=== PATIENT | female | born 1935 | race Caucasian/White ===

== ENCOUNTER 2016-04-02 16:19 | Inpatient (IN) | payer MEDICARE, OTHER ==
[~2016-04-02] VITALS: Ht 157.5 cm; Wt 65.5 kg
[~2016-04-02 16:19] MED LIST: CLOP75TA3 PO; LORA10CA PO
[2016-04-02 18:36] VITALS: PULSE 74
[2016-04-02 18:51] VITALS: BP 163/82; PULSE 85; RESP 16; O2SAT 95
[2016-04-02 19:45] VITALS: BP 155/82; PULSE 63; RESP 15; O2SAT 99
[2016-04-02] MEDS ORDERED: Diltiazem 5 mg/mL 5 mL Inj IVPUSH PRN (19:50)
[2016-04-02] MEDS ORDERED: LISI-567 PO (19:57)
[2016-04-02] MEDS ORDERED: ATRV10T PO (19:57)
[2016-04-02] MEDS ORDERED: ASPI-973 PO (19:57)
[2016-04-02] MEDS ORDERED: CHOL200047 PO (19:58)
[2016-04-02] MEDS ORDERED: Ondansetron 2 mg/mL 2 mL Inj IVPUSH PRN (20:00)
--- NOTE | 2016-04-02 20:31 | PCM.HPMED ---
Subjective Date of Service Apr 02, 2016 Primary Provider: Admitting Physician: Mitra Oliva MD Primary Care Physician: Ameya Smalls MD Attending Physician: Mitra Oliva MD Chief Complaint: sob transfer from [place] for RVR not accurate historian 80 y f w/ hx of "irrregular heart beat", presented w. ongoing lightheadness new SOB this am to [facility], noted to be in RVR 150 atrial fibrillation, converted to SR w/ 20 dilt, transferred at Dr. Patel's request. lighheadness started yesterday night, she went to bed and was awakened by chest pressure. reg BM yesterday. resolved SOB / lightheadness after 1L NS and dilt. intemittent leg swelling hx. general loss of appetite since passed last summer w/ weight loss. sinus congestion. [id number] BNP 537 Trop I 0.3 at10am >> 0.4 at2pm Cr 0.8 INR 1.2 Hg 12.3 Other labs unremarkable CXR cardiomegaly EKG 147 afib Review of Systems - none of the following - F/C/sick contact / wt change/ SRINIVASAN / lightheaded / dizziness / sob / cough / cp / acid reflux / n/v/diarrhea / bleeding/bruising / leg swelling / change in voiding / yeast infections / rash 1week ago epigastric pain radiated to back none now. diarrhea/nausea x 3 days, none now. ambulates w/o difficulty FHX cardiac disease social HX never smoker PMHX AR colitis episode HTN DLP OA lower extremity angioplasty s/p plavix x 5 months appendectomy Meds ASA fluticasone/vit d lisinopril statin Allergies Coded Allergies: No Known Allergies (Unverified , 04/02/16) PMH Social History Hx Alcohol Use: No Hx Substance Use: No Smoking Status: Never Smoker Exam Vital Signs Vital Sign - Last Date Time Temp Pulse Resp B/P Pulse Ox O2 Delivery O2 Flow Rate FiO2 04/02/16 19:45 36.7 63 15 155/82 99 Room Air Exam Exam on admission NAD A and O x 3 mood affect WNL NC/AT no icterus no injected eyes EOMI PERRL /no pharyngeal lesions/ no oral lesions / hearing intact Supple neck CTAB equal chest rise / no accessory muscle use / speaks in full sentences / no rrw RRR S1 S2 / no mrg / 2+ radial pulses Soft nt nd + BS no hepatosplenomegaly No edema no cyanosis no ecchymosis of lower extremities No rash / no jaundice ARVIZU CNII-XII grossly intact symmetrical No dysmetria of bilateral upper and lower limbs /no asterixis/ Strength grossly intact of bilateral upper and lower limbs Sensation grossly symmetrical of bilateral upper and lower limbs systolic murmur mild bilateral edema CT angio - small pericardial/pleural effusions, negative PE lipase negative Assessment & Plan Active issues and reason for admission 80 y f, elevated trop, treating as NSTEMI associated w/ RVR/CHF symptoms --heparin gtt, morphine nitro asa statin prn metoprolol/hydralazine --Dr Cordova is aware of patient re: RVR, call in morning to update on elevated trop RVR, afib - unclear if afib is new vs chronic --hx of "irreg"heart beat, only on ASA --resolved at [place], PRN dilt --eventually discuss anticoagulation --not a fall risk, appears to be a poor historian Chronic issues known prior to admission, present on admission AR / lower extremity angioplasty s/p plavix x 5 months / HTN / DLP colitis episode OA --resume home medications, hold home lisinopril Diet NPO DVT prophylaxis on heparin gtt Code full Disposition inpt Assessment and plan were discussed with patient Mitra Oliva MD Apr 02, 2016 20:09
[2016-04-02] MEDS ORDERED: Polyethylene Glycol (PEG) 17 Gm Powder PO PRN (20:35)
[2016-04-02] MEDS ORDERED: Senna-Docusate 8.6-50 mg Tablet PO PRN (20:35)
[2016-04-02] MEDS ORDERED: Alum-Mag Hydrox-Simeth 30 mL Suspension PO PRN (20:35)
--- NOTE | 2016-04-02 21:15 | DRSVH ---
PROCEDURE: CT ANGIO CHEST PULMONARY EMBOLISM ([id number]) INDICATIONS: elevated ddimer, back pain TECHNIQUE: After the administration of intravenous contrast, 2 mm thick sections acquired from the pulmonary api bev to the posterior costophrenic angles. 3-dimensional maximum intensity projection (MIP) coronal a nd sagittal reformats were then acquired through the thorax. For radiation dose reduction, the follo wing was used: automated exposure control, adjustment of mA and/or kV according to patient size. COMPARISON: None. FINDINGS: Image quality: Excellent. Pulmonary arteries: Pulmonary arteries are normal in size, and demonstrate no intraluminal filling d efects to suggest central pulmonary embolism. Lungs and pleura: Minimal bilateral pleural effusions are present. Central and peripheral airways ar e patent. Mediastinum: Heart size is normal, with mild pericardial effusion, measuring 14 mm in transverse dim ension. No mediastinal or hilar adenopathy. Thoracic aorta demonstrates mild ectasia of the ascendi ng segment measuring 36 mm in transverse dimension. No priors are available for comparison. Esophagus is normal in caliber, without hiatal hernia. Bones and chest wall: No suspicious bony lesions. Ribs and thoracic spine appear intact throughout. Thyroid gland is unremarkable. No axillary or supraclavicular adenopathy. Abdomen: Visualized upper abdominal solid organs appear normal in the early arterial phase of enhanc ement. IMPRESSION: 1. No evidence of pulmonary embolism. 2. Minimal bilateral pleural effusions. Dictated by: Jacquelyn Myles M.D. on 04/02/2016 at 21:14 Approved by: Jacquelyn Myles M.D. on 04/02/2016 at 21:14
[2016-04-02 22:50] LABS: Magnesium 1.9 mg/dL (1.6-2.6)
[2016-04-02 22:51] LABS: TROPONIN T 0.359 ug/L (0.0-0.011)
[2016-04-02] MEDS ORDERED: Heparin 25K Unit/500mL 0.45 NS 25,000 UNIT in IV Premix 1 EACH IV SCH (23:05)
[2016-04-02] MEDS ORDERED: Heparin 5,000 Unit/mL Inj IVPUSH ONE (23:05)
[2016-04-02] MEDS ORDERED: Heparin 5,000 Unit/mL Inj IVPUSH PRN (23:05)
[2016-04-02 23:12] VITALS: BP 131/74; PULSE 75; RESP 18; O2SAT 97
[2016-04-03] VITALS (32 sets, daily range): BP systolic 69–130; BP diastolic 42–85; PULSE 63–155; RESP 11–22; O2SAT 94–100
[2016-04-03 00:54] LABS: APPEARANCE,URINE CLEAR (CLEAR,HAZY); COLOR,URINE STRAW (YELLOW); OCCULT BLOOD,URINE TRACE (NEGATIVE); PH,URINE 5.5 (5.0-8.0); UROBILINOGEN,URINE NORMAL (NORMAL)
[2016-04-03] MEDS ORDERED: Sodium Chloride NAS 45 mL Spray NASAL PRN (02:00)
--- NOTE | 2016-04-03 02:34 | NUR ---
Admit: Pt admitted as transfer from [facility]. Med rec completed over the phone via daughter who had pt pill bottles. Health history obtained from pt interview. Pt denies any chest pain or discomfort. Tele SR with PACs, Sp02 90s on RA. Critical Troponin reported to Dr. Oliva- Pt placed on cardiac heparin gtt protocol per MD orders. Pt has been NPO since after midnight. Pt sleeping comfortably. Care ongoing
[2016-04-03 05:18] LABS: Mean Corpuscular Hemoglobin 28.1 pg (27.0-35.0); Mean Corpuscular Volume 88.5 fL (81-100)
[2016-04-03 05:38] LABS: INR 1.12 ratio
[2016-04-03 06:08] LABS: Magnesium 1.9 mg/dL (1.6-2.6)
[2016-04-03 06:12] LABS: TROPONIN T 0.323 ug/L (0.0-0.011)
--- NOTE | 2016-04-03 09:04 | NUR ---
Afib Per lawn care technician patient converted back to Afib at approximately 0659. EKG done. MD notified. Pt HR low 60s to 160s.
[2016-04-03] MEDS ORDERED: 0.9% Sodium Chloride 1,000 ML IV ONE (10:37)
[2016-04-03] MEDS ORDERED: Heparin 1,000 Units/500 mL NS Premix IV ONE (10:44)
[2016-04-03] MEDS ORDERED: Heparin 5,000 Units/500 mL NS Premix IV ONE (10:44)
[2016-04-03] MEDS ORDERED: Heparin 1,000 Unit/mL 10 mL Inj ONE (10:45)
[2016-04-03] MEDS ORDERED: Nitroglycerin 50,000 mcg/250 mL D5W Premix IV ONE (10:53)
[2016-04-03] MEDS: Pantoprazole 4 mg/mL 10 mL Inj IVPUSH SCH (11:11)
--- NOTE | 2016-04-03 11:40 | NUR ---
Off floor to Poultry Service Technician Pt off floor to Poultry Service Technician at 1140, accompanied by daughter.
[2016-04-03] MEDS ORDERED: fentaNYL-PF 50 mCg/mL 2 mL Inj ONE (11:56)
[2016-04-03] MEDS ORDERED: Phenylephrine/NS-PF 100 mCg/mL 5 mL Syringe IVPUSH ONE (12:09)
[2016-04-03] MEDS ORDERED: 0.9% Sodium Chloride 0 ML ONE (12:16)
[2016-04-03] MEDS ORDERED: Adenosine Inj 0 ML IV ONE (12:16)
[2016-04-03] MEDS ORDERED: 0.9% Sodium Chloride 250 ML ONE (12:17)
[2016-04-03] MEDS ORDERED: Adenosine 3 mg/mL 2 mL Inj ONE (12:17)
[2016-04-03] MEDS ORDERED: Atropine 1 mg/10 mL (Code) Syringe ONE (12:19)
--- NOTE | 2016-04-03 13:03 | DI95 ---
[address] [address] INTERVENTIONAL CARDIAC CATHETERIZATION PATIENT: SALVADOR SUAREZ : 1935 MR#: [id number] ADMIT: 04/02/2016 JOB ID: [id number] DATE: 04/03/2016 PROCEDURE: 1. Selective right and left coronary angiography. 2. Left heart catheterization. 3. FFR of the left main. INDICATION: Large ST elevation MO. PROCEDURAL DETAILS: The procedure was done via right femoral approach using a 6-Angolan system. Further details are enumerated in the procedure log to which the reader and the coders are referred. ANGIOGRAPHIC FINDINGS: 1. Habq-lo-ywqofkjs calcification of the coronary tree is noted on fluoroscopy. 2. Left main moderate 30%-40% angiographic disease. However, there was significant ventricularization and damping of the pressure. This did not respond with intracoronary nitroglycerin. In view of this, an FFR was done. Details about the FFR are reported below. 3. LAD: No significant disease. It is a moderate caliber vessel. 4. Circumflex: In its distal circumflex distally has a tubular 70% stenosis. 5. Right coronary artery is totally occluded. This is probably an ostial occlusion. Faint filling of the very proximal RCA seen by a subselective injection. The rest of the artery is seen to fill via [id number] collaterals. This is technically a bypassable vessel. 6. Left heart catheterization revealed LVEDP of 15. There was no gradient upon pullback. 7. We then did an FFR of the left main. The FFR in the left main with intracoronary Adenosine was 0.87, thereby indicating that it was not physiologically significant. ASSESSMENT AND PLAN: This lady has two-vessel coronary artery disease and a borderline left main lesion. The circumflex is a small vessel barely 2 mm. This can be managed medically. The RCA is a flush occlusion and given her advanced age and limited functional ability, I think this is best managed medically too. Lastly, with regard to her left main, it is not critical at this point. I would recommend close cardiology followup and aggressive risk factor modification. I will be discussing all this with the patient postprocedure.
--- NOTE | 2016-04-03 13:20 | NUR ---
Dr Jorgensen called and informed that patient has had for woods laborer and DAMIAN (during hypotensive episode) total 1 litre fluid. I don't know details of patient's cardiac function so wanted to confirm that I may continue normal saline @ 100cc/hr. He would like NS to continue per order. Throughout patient's hypotensive episode during manual compression after arterial line pull, patient remained alert, oriented, warm and dry.
--- NOTE | 2016-04-03 13:24 | PCM.PNMED ---
Subjective Date of Service Apr 03, 2016 Subjective The patient is doing well. She does have some palpitations. She denies any chest pain today. No chest pressure. She has had some vague history of pressure over the course of the night. She has had mild troponin elevations as well. She denies any cough or dyspnea. No leg edema. No nausea or vomiting. No dyspepsia. Exam Vital Signs Vital Sign - Last Date Time Temp Pulse Resp B/P Pulse Ox O2 Delivery O2 Flow Rate FiO2 04/03/16 08:30 36.5 153 22 97/65 99 Room Air Intake and Output 04/02/16 04/02/16 04/03/16 Cumulative From/Thru 15:00 23:00 07:00 04/02/16 18:52 - 04/03/16 06:07 Intake Total 396 ml 396 ml Output Total 650 ml 650 ml Balance -254 ml -254 ml Intake Oral 300 ml 300 ml IV Total 96 ml 96 ml Output Urine Total 650 ml 650 ml # Bowel Movements 0 0 Exam Third oriented 3, no distress. Neck is supple. Lungs are clear with normal effort Heart is irregular and tachycardic without murmur gallop or rub Abdomen soft nondistended Extremities are free of edema and good peripheral pulses. IVs and Medications Medications Reviewed: Medications were reviewed in detail Lab and Diagnostics Result Diagram: 04/03/16 0500 04/03/16 0500 Assessment & Plan Active issues and reason for admission 80 y f, elevated trop, 1. NSTEMI associated w/ RVR/CHF symptoms --heparin gtt, morphine nitro asa statin prn metoprolol/hydralazine -- We will request formal cardiology consultation as we continue to work on rate control. 2. Atrovent fibrillation with rapid ventricular response. - unclear if afib is new vs chronic -- We will continue heparin drip at this point and rate control. We will add a low-dose beta eileen orally and attempt to wean her off her diltiazem drip. Chronic issues known prior to admission, present on admission Left leg PAD, lower extremity angioplasty s/p plavix x 5 months / HTN / DLP colitis episode OA --resume home medications, hold home lisinopril Diet NPO, until after cardiology consultation. DVT prophylaxis on heparin gtt Code full Disposition inpt Assessment and plan were discussed with patient Pain Evaluation: Adequate Pain Control Resuscitation Status: CPR: Attempt Resuscitation Time spent 30 minutes Ramakrishna Parks MD Apr 03, 2016 13:24
--- NOTE | 2016-04-03 13:54 | NUR ---
Social Work: Attempted Assessment D: Per EMR review, pt is an 80 year old female admitted for CHF, AFIB. Pt is Medicare with [employer]. PCP is Ameya Luo MD. NOK is Audrey Luo, Dtr, . Readmit score not entered at this time. Advanced directives on file. SPRAY GUN STRIPER attempted to meet with pt at bedside to complete initial assessment. Pt is currently off the floor for cardiac cath. SPRAY GUN STRIPER attempted to speak with pt's daughter via telephone. No answer. Left message requesting return phone call. A: Pt who was previously living in [facility] at baseline. P: Evolving; SPRAY GUN STRIPER to complete assessment with pt and/or family ESTHER Pichardo
--- NOTE | 2016-04-03 14:26 | CONS ---
[address] [address] CONSULTATION REPORT PATIENT: SALVADOR SUAREZ : 1935 MR#: [id number] ADMIT: 04/02/2016 JOB ID: [id number] DATE OF SERVICE: 04/03/2016 CHIEF COMPLAINT: New onset atrial fibrillation. HISTORY OF PRESENT ILLNESS: I was contacted by the [facility] because of this lady having rapid atrial fibrillation and positive troponin along with ST-T changes. The patient was admitted to the hospitalist at [facility]. I was asked to see her in consultation. The patient was lightheaded yesterday. She went to bed and had some chest discomfort. She was treated with IV diltiazem. At the time of interview this morning, she was pain free and was unaware of any palpitations at that point. 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 He had advanced dementia and she was taking care of him. Since then, she has not really thrived very well. I have also spoken to her daughter. She states that her mother is not very active. The patient states that she cannot walk a block. About a year ago she had intervention done on her legs with Dr. Huitron. I do not have access to that report. It appears that some kind of a peripheral intervention was done on her legs. She states her legs are the limiting factor; any time she tries to exert herself she gets claudication type symptoms. Her legs get fatigued and tighten up on her. Intervention by Dr. Huitron made only a modest improvement in her symptoms. At home she has not had any pressure or tightness. She denied any orthopnea or PND. REVIEW OF SYSTEMS: A comprehensive review of systems was done and is essentially as per HPI. Pertinent negatives are no strokes, no TIAs, no upcoming surgeries. FAMILY HISTORY: Negative for premature coronary artery disease. PERSONAL HISTORY: Nonsmoker, nondrinker. PAST MEDICAL HISTORY: Hypertension, osteoarthritis, peripheral vascular disease, hypertension. MEDICATIONS AT HOME: Lisinopril, statin, and aspirin. ALLERGIES: None. PHYSICAL EXAMINATION: Elderly lady who looks her age. Pulse 120, irregular. Blood pressure 100/70. Neck: Supple. No JVD. Chest: Clear. Heart: Heart sounds S1 and S2 irregularly irregular. No gallops. No murmurs. Abdomen: Soft. Extremities: Negative for CCE. Femoral pulses are 1+. Distal pulses were not palpable. SENIOR MARKET INTELLIGENCE CONSULTANT: Alert and oriented. ASSESSMENT AND PLAN: This lady presents with rapid atrial fibrillation. She also has elevated troponin which may or may not be due to demand ischemia. Given her history of peripheral vascular disease, coronary artery disease is strongly suspected. She also had significant ST-segment depression with rapid heart rates. I believe she would require a coronary angiogram. The risks, benefits, and alternatives were discussed with the patient. The patient agreed to proceed ahead with an angiogram. The details of the angiogram are reported elsewhere. Briefly, she has a chronically occluded RCA and disease in a small caliber circumflex. This is distal disease. The left man main has about 40% angiographic stenosis and the FFR in the left main was 0.87. At this point I would like to slow her heart rate down. Start her on warfarin along with Plavix. Her aspirin can be held for now. I would like her to take Plavix for at least six months to a year. She will have arterial Dopplers performed on her legs. An echo has been ordered. I am awaiting the results of her echocardiogram as well.
--- NOTE | 2016-04-03 14:45 | NUR ---
T.C to Dr. Jorgensen regarding patient's atrial fibrillation rate 140's to 152 and sbp in the mid 90's range. Order to give a small dose of in metoprolol 2.5 mg IV and then P.O metoprolol depending on response.
[2016-04-03] MEDS ORDERED: MeTOProlol 1 mg/mL 5 mL Inj ONE (14:50)
--- NOTE | 2016-04-03 16:30 | NUR ---
Dr Jorgensen updated on patient's response to IV metiprolol.It has been approx. 1hour 25 minutes since given and she had a blood pressure response in the 60's to 80's systolic for which she received NS 250cc bolus. Patient has no complaints, right groin stable without pain, oozing or hematoma. New orders received to give digoxin IV and metoprolol 25 mg P.O with parameters for giving Metoprolol 50 mg P.O BID (written by Dr Jorgensen) if SBP is greater than 110.
[2016-04-03] MEDS ORDERED: Digoxin 0.25 mg/mL 2 mL Inj IV ONE ×2 (16:35→16:45)
--- NOTE | 2016-04-03 17:20 | NUR ---
Report called to Loretta [facility]. Pt's systolic Bp now 130, iv digoxin and p.o metoprolol given.Pt transferred back to room 2027 in stable condition, HR still in 130's to 140 range.Handoff at bedside, pt may be off bedrest since she is 4 hrs post removal of arterial sheath.
--- NOTE | 2016-04-03 17:32 | NUR ---
DAMIAN to [facility] Patient arrived from [facility] at approximately 1715. Report taken from DAMIAN [place]. Pt BP 124/79, P 146. Right groin palped no sign of hematoma or bleeding. Ordered patients dinner. Patient off bedrest at 1715. Patient resting. Care continues.
[2016-04-03] MEDS ORDERED: 0.9% Sodium Chloride 250 ML BOLUS IV PRN (19:30)
[2016-04-03] MEDS ORDERED: Ondansetron 2 mg/mL 2 mL Inj IVPUSH PRN (19:30)
[2016-04-03] MEDS ORDERED: 0.9% Sodium Chloride 400 ML (4 HRS) IV ONE (19:30)
[2016-04-03] MEDS ORDERED: Atropine 1 mg/10 mL (Code) Syringe IVPUSH PRN (19:30)
[2016-04-03] MEDS ORDERED: Sodium Chloride LOK Flush 10 mL Syringe IVFLUSH PRN (19:30)
[2016-04-03] MEDS ORDERED: HYDROcodone-APAP 5-325 mg Tablet PO PRN (19:30)
[2016-04-03] MEDS: Sodium Chloride LOK Flush 10 mL Syringe IVFLUSH SCH ×2 (20:14→22:15)
--- NOTE | 2016-04-03 23:01 | PCM.CONPHA ---
Subjective Date of Service: Apr 03, 2016 sob transfer from [place] for RVR not accurate historian 80 y f w/ hx of "irrregular heart beat", presented w. ongoing lightheadness new SOB this am to [facility], noted to be in RVR 150 atrial fibrillation, converted to SR w/ 20 dilt, transferred at Dr. Patel's request. lighheadness started yesterday night, she went to bed and was awakened by chest pressure. reg BM yesterday. resolved SOB / lightheadness after 1L NS and dilt. intemittent leg swelling hx. general loss of appetite since passed last summer w/ weight loss. sinus congestion. [id number] BNP 537 Trop I 0.3 at10am >> 0.4 at2pm Cr 0.8 INR 1.2 Hg 12.3 Other labs unremarkable CXR cardiomegaly EKG 147 afib Review of Systems - none of the following - F/C/sick contact / wt change/ SRINIVASAN / lightheaded / dizziness / sob / cough / cp / acid reflux / n/v/diarrhea / bleeding/bruising / leg swelling / change in voiding / yeast infections / rash 1week ago epigastric pain radiated to back none now. diarrhea/nausea x 3 days, none now. ambulates w/o difficulty FHX cardiac disease social HX never smoker PMHX ID colitis episode HTN DLP OA lower extremity angioplasty s/p plavix x 5 months appendectomy Meds ASA fluticasone/vit d lisinopril statin Reason for Pharmacy Consult: Anticoagulation Management Objective Vital Signs Date Time Temp Pulse Resp B/P Pulse Ox O2 Delivery O2 Flow Rate FiO2 04/03/16 20:01 36.8 100 16 116/76 98 Room Air 04/03/16 17:35 36.5 146 18 124/79 99 Room Air 04/03/16 17:01 138 130/84 04/03/16 16:50 144 04/03/16 16:45 138 92/57 04/03/16 16:25 132 103/72 04/03/16 16:22 140 103/72 04/03/16 16:19 139 19 74/59 04/03/16 16:05 141 15 99/76 04/03/16 16:04 139 17 85/63 04/03/16 15:56 139 87/57 04/03/16 15:52 137 22 91/67 Room Air 04/03/16 15:45 137 13 85/69 04/03/16 15:42 136 14 79/64 04/03/16 15:28 137 15 95/73 Room Air 04/03/16 15:26 133 11 69/55 Room Air 04/03/16 15:15 133 14 93/55 04/03/16 14:57 147 13 103/68 Room Air 04/03/16 14:30 148 16 95/74 94 Room Air 04/03/16 14:15 155 16 107/77 94 Room Air 04/03/16 13:57 146 14 104/85 94 Room Air 04/03/16 13:45 146 14 72/57 94 Room Air 04/03/16 13:30 142 14 94/69 96 Nasal Cannula 3.00 04/03/16 13:15 144 14 100/62 96 Nasal Cannula 3.00 04/03/16 13:10 141 14 101/61 96 Nasal Cannula 4.00 04/03/16 13:05 146 14 94/79 96 Nasal Cannula 4.00 04/03/16 13:00 140 14 75/42 96 Nasal Cannula 4.00 04/03/16 12:55 144 14 78/52 96 Nasal Cannula 4.00 04/03/16 12:53 145 14 100/61 96 Nasal Cannula 4.00 04/03/16 08:30 36.5 153 22 97/65 99 Room Air 04/03/16 05:31 74 04/03/16 03:16 36.7 73 18 107/66 98 Room Air 04/02/16 23:12 36.5 75 18 131/74 97 Room Air Weight (Kilograms): 63.000 Height (Feet): 5 Height (Inches): 2.00 Test 04/02/16 22:05 04/02/16 23:51 04/03/16 05:00 04/03/16 18:15 Lipase 12U/L (13-60) Urine Color Straw (YELLOW) Urine Appearance Clear (CLEAR,HAZY) Urine pH 5.5 (5.0-8.0) Urine Specific [place] 1.005 (1.003-1.035) Urine Protein Negativemg/dL (NEG,TRACE) Urine Glucose (UA) Negativemg/dL (NEGATIVE) Urine Ketones 15mg/dL (NEGATIVE) Urine Occult Blood Trace (NEGATIVE) Urine Nitrite Negative (NEGATIVE) Urine Bilirubin Negative (NEGATIVE) Urine Urobilinogen Normalmg/dL (NORMAL) Urine Leukocyte Esterase Negative (NEGATIVE) Urine RBC 0-2/hpf (0-2) Urine WBC 0-5/hpf (0-5) Urine Epithelial Cells Moderate/hpf (NONE-MOD) Urine Crystals None seen (NONE SEEN) Urine Bacteria None/hpf (NONE-FEW) Urine Hyaline Casts None/lpf (NONE) Urine Granular Casts None seen (NONE SEEN) Urine Waxy Casts None seen (NONE SEEN) Urine Red Blood Cell Casts None seen (NONE SEEN) Urine White Blood Cell Casts None seen (NONE SEEN) Urine Mucus None seen (None Seen) Urine Trichomonas None seen (NONE SEEN) Urine Yeast None (NONE SEEN) Urine Culture Reflexed Not indicated White Blood Count 5.2th/mm3 (3.8-10.1) Red Blood Count 3.91mil/mm3 (3.90-5.20) Hemoglobin 11.0g/dL (12.0-15.6) Hematocrit 34.6% (35.0-46.0) Mean Corpuscular Volume 88.5fL (81-100) Mean Corpuscular Hemoglobin 28.1pg (27.0-35.0) Mean Corpuscular Hemoglobin Concent 31.8% (32.0-37.0) Red Cell Distribution Width 13.4% (12.3-15.4) Platelet Count 259bil/L (150-400) Prothrombin Time 12.0sec (8.1-12.5) Prothromb Time International Ratio 1.12ratio Sodium Level 140mEq/L (134-144) Potassium Level 3.9mEq/L (3.5-5.2) Chloride Level 105mEq/L (97-108) Carbon Dioxide Level 20mmol/L (18-29) Blood Urea Nitrogen 7mg/dL (8-27) Creatinine 0.60mg/dL (0.57-1.00) Estimat Glomerular Filtration Rate 137mL/min (>59) Glucose Level 83mg/dL (60-99) Calcium Level 8.2mg/dL (8.5-10.1) Phosphorus Level 3.0mg/dL (2.5-4.9) Magnesium Level 1.9mg/dL (1.6-2.6) Troponin T 0.323ug/L (0.0-0.011) Thyroid Stimulating Hormone (TSH) 1.680uIU/mL (0.450-4.500) Free Thyroxine 1.32ng/dL (0.82-1.77) Activated Partial Thromboplast Time 29.4sec (22.8-33.0) Assessment/Plan Assessment/Plan Gold Miner ordered Coumadin 4mg daily INR: 1.12; Goal 2 - 3 Indication: A-Fib, uncertain if new onset or chronic 4mg given; Daily INR ordered Edu Reynolds PharmD Apr 03, 2016 23:01
[2016-04-04] VITALS (8 sets, daily range): BP systolic 110–174; BP diastolic 59–89; PULSE 55–106; RESP 16–20; O2SAT 98–100
[2016-04-04 03:56] LABS: Mean Corpuscular Hemoglobin 28.5 pg (27.0-35.0); Mean Corpuscular Volume 89.1 fL (81-100)
[2016-04-04 04:18] LABS: INR 1.26 ratio
--- NOTE | 2016-04-04 04:51 | NUR ---
Telemetry Pt afib 100s-110s at beginning of shift; HS medications administered with 400ml bolus of NS. At approx. 2040, pt spontaneously converted to sinus arrhythmia in 50s-60s. EKG obtained for confirmation. Pt denies feeling symptomatic. VSS.
[2016-04-04] MEDS: Pantoprazole 4 mg/mL 10 mL Inj IVPUSH SCH (09:54)
[2016-04-04] MEDS: Sodium Chloride LOK Flush 10 mL Syringe IVFLUSH SCH ×2 (09:55→18:29)
--- NOTE | 2016-04-04 12:29 | DRSVH ---
[facility] [address] [place] [address] Echocardiogram Report Name: SALVADOR SUAREZ MStudy Date: 04/04/2016 Height: 62 in Hospital Exam Location: [facility] Weight: 144 lb Gender: Other BSA: 1.7 m2 : 1935 Age: 80 yrs BP: 129/69 mmHg Reason For Study: AFIB Ordering Physician: HOSPITALIST MARELYerformed By: Navdeep Larson Referring Physician: Duong COTTON Interpretation Summary The left ventricle is normal in size. The ejection fraction is estimated to be 65-70%. There is mild prolapse of the posterior mitral valve leaflet. There is mild mitral regurgitation. The right ventricular systolic pressure is estimated at 29 mmHg assuming a right atrial pressure of 3 mm Hg. There are no echocardiographic indications of cardiac tamponade. There is a small right-sided pleural effusion. There is a moderate left-sided pleural effusion. Procedure: A two-dimensional transthoracic echocardiogram with color flow and Doppler was performed. The study quality was technically adequate. There is no prior echocardiogram noted for this patient. The patient was in normal sinus rhythm during the exam. Left Ventricle: The left ventricle is normal in size. There is normal left ventricular wall thickness. The ejection fraction is estimated to be 65-70%. There are no focal wall motion abnormalities. Right Ventricle: The right ventricle is normal in size and function. Atria: Both atria are normal in size. The interatrial septum is intact with no evidence for an atrial septal defect. Mitral Valve: There is mild mitral annular calcification. The mitral valve chordae are thickened and/or calcified. There is mild prolapse of the posterior mitral valve leaflet. There is mild mitral regurgitation. Aortic Valve: The aortic valve is trileaflet. The aortic valve opens well. There is trace aortic regurgitation. Tricuspid Valve: The tricuspid valve is normal in structure and function. There is mild tricuspid regurgitation. The right ventricular systolic pressure is estimated at 29 mmHg assuming a right atrial pressure of 3 mm Hg. Pulmonic Valve: The pulmonic valve is normal in structure and function. There is trace pulmonic regurgitation. Great Vessels: The aortic root is normal size. The ascending aorta is mildly enlarged. The pulmonary artery is normal size. The IVC is of normal diameter and collapses greater than 50% with a sniff. This suggests a low right atrial pressure of 3 mm Hg. Pericardium/ Pleura There is a moderate pericardial effusion noted. There are no echocardiographic indications of cardiac tamponade. There is a small right-sided pleural effusion. There is a moderate left-sided pleural effusion. MMode/2D Measurements & Calculations LVIDd: 4.1 cm LA dimension: 3.2 cm RA long axis Ao root diam LVIDs: 2.1 cm FS: 47.9 % LA A2 area: 20.0 cm RA area Aortic Jxn: 2.0 cm EPSS: 0.17 cm LA A4 area: 18.2 cm asc Aorta Diam IVSd: 0.96 cm LA length (vol) : 15.8 cm LVPWd: 0.90 cm RA vol Ao Arch Diam (Prox LA vol: 52.9 ml : 47.6 ml Trans): 2.8 cm LA vol index RA : 28.6 mm2 IVC diam: 2.0 cm LV jennings. diameter/BSA LV sys. diameter/BSA RVD1 (basal) RVD2 (mid): 3.2 cm (cm/m^2): 2.4 (cm/m^2): 1.3 Doppler Measurements & Calculations Ao V2 max MV E max placido MV E/A: 1.3 TR max placido: 252.7 cm/sec : 117.8 cm/sec : 90.1 cm/sec Med Peak E' Placido TR max P.5 mmHg Ao max PG MV A max placido PA V2 max: 56.5 cm/sec : 5.6 mmHg : 68.6 cm/sec E/E' med: 16.5 PA mean P.57 mmHg Ao mean PG Pulm A Revs Dur PA Accel Time: 0.05 sec : 2.6 mmHg MV A dur: 0.13 sec MV dec time Ao V2 mean PA V2 mean Pulm A Revs Dur - MV A : 0.19 sec : 75.2 cm/sec : 35.3 cm/sec Dur: -0.02 msec Ao V2 VTI PA pr(Accel) : 25.6 cm : 56.5 mmHg Electronically signed by: Kwame Jorgensen on Reading Physician:04/04/2016 12:28 PM
--- NOTE | 2016-04-04 13:30 | NUR ---
Mobility Encourage patient to walk in room or sit in chair to eat. Patient states she was up in the morning. Patient resting comfortably. Daughter to arrive around 2p to visit. Care continues.
--- NOTE | 2016-04-04 13:33 | NUR ---
Off floor to CT Patient off floor to CT at approximately 1320. Addendum: 04/04/16 at 1334 by GENA WASHINGTON RN Wrong patient
[2016-04-04 14:14] LABS: BASOPHILS % (AUTO) 0.2 % (0-3); MONOCYTES % (AUTO) 12.1 % (4-12); Mean Corpuscular Hemoglobin 28.2 pg (27.0-35.0); Mean Corpuscular Volume 88.3 fL (81-100); NEUTROPHILS % (AUTO) 69.8 % (40-74); Platelet Count 319 bil/L (150-400)
--- NOTE | 2016-04-04 14:34 | NUR ---
Social Work: Initial Assessment D: NANNY CAREGIVER spoke with pt's daughter to complete assessment. Sw role explained. See initial assessment. Pt lives in [place] with her daughter. Pt is I at baseline- pt uses a walker, does not drive, has never had HH or skilled rehab/nursing. Pt has completed advanced directives per daughter. NANNY CAREGIVER requested copy- daughter will provide. She states that she does not have any concerns for pt discharging home as long as she has not had a sharp decrease in functioning. Per care trends, pt continues to be I during admission. NANNY CAREGIVER reviewed possibility for home health. Family will think about this. HH choice list provided to pt and verbally reviewed with pt's daughter. They have no preference for [facility] if pt requires this at discharge. A: Pt who is I at baseline. P: Anticipate pt to discharge home via POV once medically stable; NANNY CAREGIVER to r/o possible home health with tomorrow. ESTHER Pichardo Addendum: 04/04/16 at 1444 by SAMEER KAY Amended: Links added.
[2016-04-04 15:06] LABS: Bilirubin, Direct < 0.2 mg/dL (0.0-0.3)
--- NOTE | 2016-04-04 15:17 | PCM.CONPHA ---
Subjective Date of Service: Apr 04, 2016 atrial fibrillation Reason for Pharmacy Consult: Anticoagulation Management Objective Vital Signs Date Time Temp Pulse Resp B/P Pulse Ox O2 Delivery O2 Flow Rate FiO2 04/04/16 12:20 36.4 63 20 110/59 100 Room Air 04/04/16 09:30 36.6 65 18 149/65 98 04/04/16 06:01 55 04/04/16 03:34 36.6 106 16 129/69 98 Room Air 04/03/16 22:58 36.5 63 16 128/67 100 Room Air 04/03/16 20:01 36.8 100 16 116/76 98 Room Air 04/03/16 17:35 36.5 146 18 124/79 99 Room Air 04/03/16 17:01 138 130/84 04/03/16 16:50 144 04/03/16 16:45 138 92/57 04/03/16 16:25 132 103/72 04/03/16 16:22 140 103/72 04/03/16 16:19 139 19 74/59 04/03/16 16:05 141 15 99/76 04/03/16 16:04 139 17 85/63 04/03/16 15:56 139 87/57 04/03/16 15:52 137 22 91/67 Room Air 04/03/16 15:45 137 13 85/69 04/03/16 15:42 136 14 79/64 04/03/16 15:28 137 15 95/73 Room Air 04/03/16 15:26 133 11 69/55 Room Air Intake and Output 04/02/16 04/03/16 04/04/16 00:00 00:00 00:00 Intake Total 2596 ml Output Total 950 ml Balance 1646 ml Weight (Kilograms): 65.500 Height (Feet): 5 Height (Inches): 2.00 Test 04/02/16 22:05 04/02/16 23:51 04/03/16 05:00 04/03/16 18:15 Lipase 12U/L (13-60) Urine Color Straw (YELLOW) Urine Appearance Clear (CLEAR,HAZY) Urine pH 5.5 (5.0-8.0) Urine Specific [place] 1.005 (1.003-1.035) Urine Protein Negativemg/dL (NEG,TRACE) Urine Glucose (UA) Negativemg/dL (NEGATIVE) Urine Ketones 15mg/dL (NEGATIVE) Urine Occult Blood Trace (NEGATIVE) Urine Nitrite Negative (NEGATIVE) Urine Bilirubin Negative (NEGATIVE) Urine Urobilinogen Normalmg/dL (NORMAL) Urine Leukocyte Esterase Negative (NEGATIVE) Urine RBC 0-2/hpf (0-2) Urine WBC 0-5/hpf (0-5) Urine Epithelial Cells Moderate/hpf (NONE-MOD) Urine Crystals None seen (NONE SEEN) Urine Bacteria None/hpf (NONE-FEW) Urine Hyaline Casts None/lpf (NONE) Urine Granular Casts None seen (NONE SEEN) Urine Waxy Casts None seen (NONE SEEN) Urine Red Blood Cell Casts None seen (NONE SEEN) Urine White Blood Cell Casts None seen (NONE SEEN) Urine Mucus None seen (None Seen) Urine Trichomonas None seen (NONE SEEN) Urine Yeast None (NONE SEEN) Urine Culture Reflexed Not indicated Magnesium Level 1.9mg/dL (1.6-2.6) Troponin T 0.323ug/L (0.0-0.011) Free Thyroxine 1.32ng/dL (0.82-1.77) Activated Partial Thromboplast Time 29.4sec (22.8-33.0) Test 04/04/16 03:45 04/04/16 14:05 Prothrombin Time 13.5sec (8.1-12.5) Prothromb Time International Ratio 1.26ratio Thyroid Stimulating Hormone (TSH) 3.070uIU/mL (0.450-4.500) White Blood Count 6.5th/mm3 (3.8-10.1) Red Blood Count 4.29mil/mm3 (3.90-5.20) Hemoglobin 12.1g/dL (12.0-15.6) Hematocrit 37.9% (35.0-46.0) Mean Corpuscular Volume 88.3fL (81-100) Mean Corpuscular Hemoglobin 28.2pg (27.0-35.0) Mean Corpuscular Hemoglobin Concent 31.9% (32.0-37.0) Red Cell Distribution Width 13.8% (12.3-15.4) Platelet Count 319bil/L (150-400) Neutrophils (%) (Auto) 69.8% (40-74) Lymphocytes (%) (Auto) 15.4% (14-46) Monocytes (%) (Auto) 12.1% (4-12) Eosinophils (%) (Auto) 2.0% (0-5) Basophils (%) (Auto) 0.2% (0-3) Sodium Level 141mEq/L (134-144) Potassium Level 4.2mEq/L (3.5-5.2) Chloride Level 105mEq/L (97-108) Carbon Dioxide Level 18mmol/L (18-29) Blood Urea Nitrogen 12mg/dL (8-27) Creatinine 0.66mg/dL (0.57-1.00) Estimat Glomerular Filtration Rate 123mL/min (>59) Glucose Level 104mg/dL (60-99) Calcium Level 8.8mg/dL (8.5-10.1) Phosphorus Level 3.0mg/dL (2.5-4.9) Total Bilirubin 0.3mg/dL (0.0-1.2) Direct Bilirubin < 0.2mg/dL (0.0-0.3) Aspartate Amino Transf (AST/SGOT) 18U/L (0-50) Alanine Aminotransferase (ALT/SGPT) 9U/L (0-32) Alkaline Phosphatase 93U/L (25-165) Pro-B-Type Natriuretic Peptide 4753pg/mL (0-738) Total Protein 5.9g/dL (6.4-8.4) Albumin 3.4g/dL (3.4-5.0) Assessment/Plan Assessment/Plan Assessment: * Patient is needing warfarin management for atrial fibrillation. * Patient was given warfarin 4 mg on 04/03/16 after the baseline INR was 1.12. * Patient's INR goal range: 2-3 * Patient's INR on 04/04/16: 1.26 * Patient's INR improved after the first dose. Plan: * Will give another warfarin 4 mg dose on 04/04/16 and will reevaluate with the PT/INR on 04/05/16. * Will continue to follow. Jesus Rojo Apr 04, 2016 15:17
--- NOTE | 2016-04-04 15:30 | NUR ---
Thoracentesis Patient tolerated procedure. VSS. Care continues
--- NOTE | 2016-04-04 16:27 | PCM.DIMED ---
Discharge Instructions Date of Service Apr 04, 2016 Dates of Hospitalization Apr 02, 2016 at 18:27 Discharge Diagnosis Discharge Diagnosis 1. Atrial fibrillation with rapid response. Resolved 2. CAD with occluded RCA 3. PAD 4. Bilateral pleural effusions, unclear etiology 5. Pericardial effusion Diet Heart Healthy Activity Limited until seen by PCP Call your provider Fever or Chills, Shortness of breath, Chest pain Patient Instructions Dr Tamayo early next week with protime (for coumadin) Dr Parks will call over weekend with fluid test results. Ramakrishna Parks MD Apr 04, 2016 16:27
[2016-04-04] MEDS ORDERED: WARF3TAB7 PO (16:29)
[2016-04-04] MEDS ORDERED: METO50TA3 PO (16:29)
[2016-04-04] MEDS ORDERED: CLOP75TA28 PO (16:29)
--- NOTE | 2016-04-04 17:06 | PROG NOTE ---
[address] [address] PROGRESS NOTE PATIENT: SALVADOR SUAREZ : 1935 MR#: [id number] ADMIT: 04/02/2016 JOB ID: [id number] DATE: 04/04/2016 SUBJECTIVE: Feels much better. Heart rate has slowed down. She is comfortable and would like to go home. Her echo was reviewed today. She has got pleural and pericardial effusions. I contacted Dr. Parks and spoke with Dr. Rosado. He is planning to do a thoracentesis. The patient's care and treatment plan was discussed with the patient, as well as her daughter. OBJECTIVE: Pulse 66, blood pressure 165/73. Neck: Supple. No JVD. Chest: Clear. Heart: Sounds S1, S2 regular. No gallops. Abdomen: Soft. Extremities: Negative for CCE. Diminished distal pulses. ASSESSMENT AND PLAN: 1. Atrial fibrillation, controlled. I will hold off on her warfarin because of her pericardial effusion until we get to the etiology of her pericardial effusion or until we see her pericardial effusion reduce in size. For now I would continue with aspirin. 2. Pericardial and pleural effusions. The etiology is unclear. I will look forward to the results of thoracentesis. 3. Coronary artery disease. Continue with medical management. 4. Hypertension. I would like to add MAEVE inhibitors to her current regime. I would also recommend that her Plavix (clopidogrel) be discontinued. At this point, from the viewpoint of peripheral vascular disease, she has no ischemic symptoms. Ordinarily Plavix would be indicated following a non-ST elevation CA; but, given her pericardial effusion, I would like to hold off on Plavix as well for now.
[2016-04-04] MEDS ORDERED: predniSONE 20 mg Tablet PO SCH (17:35)
--- NOTE | 2016-04-04 17:38 | DRSVH ---
PROCEDURE: X-RAY CHEST, TWO VIEWS ([id number]) INDICATIONS: Status post thoracentesis. TECHNIQUE: 2 views of the chest were acquired. COMPARISON: None. FINDINGS: Surgical changes and devices: None. Lungs and pleura: There is a small right and a moderate left pleural effusion. No pneumothorax after recent thoracentesis. Mediastinum: Mediastinal contours are normal. Heart size is enlarged. Bones and chest wall: No suspicious bony abnormalities. Soft tissues appear unremarkable. IMPRESSION: Pleural effusions. No pneumothorax after thoracentesis. Cardiomegaly. Dictated by: Cheryl Huitron M.D. on 04/04/2016 at 17:36 Approved by: Cheryl Huitron M.D. on 04/04/2016 at 17:36
[2016-04-04 18:33] LABS: BFWBC 0 /mm3
[2016-04-04] MEDS ORDERED: PRE20 PO (20:05)
--- NOTE | 2016-04-04 20:15 | PCM.PNMED ---
Subjective Date of Service Apr 04, 2016 Subjective Please see dictated Pulmonary consult note for full details Briefly, this delightful 80 woman presented with A.fib / RVR and was found to have small bilateral pleural effusions and a circumferential pericardial effusion with evidence for pleural enhancement from IV contrast during a CTPA. She denies fever, chills, wt loss, SOB or chest pain, pleuritic or otherwise. US guided thoro on Lt yielded blood tinged fluid which quickly clotted in the sterile tube, indicating an exudative fluid IMP Pleuropericarditis. Diff dx includes collagen vasc dz, (RA, MCTD, SLE), post infectious or idiopathic. I doubt this is an acute infectious process as patient is afebrile and her WBC is normal. REC LILLIAN CRP RA titer and anti CCP Quantiferon Gold Pleural fluid for glucose, LDH, protein, albumin, cell ct, and culture Prednisone 40 mg PO q day x 3 days then 20 mg PO q day. Discharge prescription written and instructions given to RN and patient. Outpatient followup of pending labs and reevaluation pending as of this Thursday evening but I plan to request assistance from community Pulmonary physicians in seeing patient next week. Exam Vital Signs Vital Sign - Last Date Time Temp Pulse Resp B/P Pulse Ox O2 Delivery O2 Flow Rate FiO2 04/04/16 16:00 66 20 165/73 98 Room Air 04/04/16 12:20 36.4 04/03/16 13:30 3.00 Intake and Output 04/03/16 04/03/16 04/04/16 Cumulative From/Thru 15:00 23:00 07:00 04/02/16 18:52 - 04/04/16 06:11 Intake Total 1950 ml 250 ml 700 ml 3296 ml Output Total 300 ml 200 ml 1150 ml Balance 1950 ml -50 ml 500 ml 2146 ml Intake Oral 250 ml 300 ml 850 ml IV Total 1950 ml 400 ml 2446 ml Output Urine Total 300 ml 200 ml 1150 ml # Voids 1 1 2 # Bowel Movements 1 1 Lab and Diagnostics Result Diagram: 04/04/16 1405 04/04/16 1405 Assessment & Plan Active issues and reason for admission 80 y f, elevated trop, 1. NSTEMI associated w/ RVR/CHF symptoms --heparin gtt, morphine nitro asa statin prn metoprolol/hydralazine -- We will request formal cardiology consultation as we continue to work on rate control. 2. Atrovent fibrillation with rapid ventricular response. - unclear if afib is new vs chronic -- We will continue heparin drip at this point and rate control. We will add a low-dose beta eileen orally and attempt to wean her off her diltiazem drip. Chronic issues known prior to admission, present on admission Left leg PAD, lower extremity angioplasty s/p plavix x 5 months / HTN / DLP colitis episode OA --resume home medications, hold home lisinopril Diet NPO, until after cardiology consultation. DVT prophylaxis on heparin gtt Code full Disposition inpt Assessment and plan were discussed with patient Resuscitation Status: CPR: Attempt Resuscitation Jesus Rosado MD Apr 04, 2016 20:15
[2016-04-04] MEDS ORDERED: ASPI325T32 PO (20:49)
--- NOTE | 2016-04-04 21:40 | NUR ---
Discharge Patient discharge to home with daughter at approximately 2150. Patient given discharge packet with educational material for Pericardial Effusion, Pleural Effusion, Coronary Artery Disease, Metoprolol and Prednisone. Next dose to be taken clearly written with dates and times for medications, followup appointment schedule and note from MD to follow up with fluid results included. Patient acknowledged and understood all information. IV's DC'd with catheters intact, tele DC'd certification technician notified. Patient site where thoracentesis was performed dry and intact. Right groin site dry and intact. Information given for cath procedure. Patient left with all belongings, escorted by RN to door with family.
--- NOTE | 2016-04-05 04:15 | CONS ---
[address] [address] CONSULTATION REPORT PATIENT: SALVADOR SUAREZ : 1935 MR#: [id number] ADMIT: 04/02/2016 JOB ID: [id number] PULMONARY CRITICAL CARE CONSULTATION NOTE: DATE OF SERVICE: 04/04/2016 REQUESTING CLINICIAN: Rosales corralesist . REASON FOR CONSULTATION: Bilateral pleural effusions with pericardial effusion. HISTORY OF ILLNESS: The patient is a delightful 80-year-old, lifetime nonsmoker, who presented to [facility] on April 02 with atrial fibrillation and rapid ventricular response. Her evaluation with CT pulmonary angiogram revealed bilateral pleural enhancement, pericardial enhancement with contrast dye and small bilateral pleural effusions as well as a pericardial effusion. The pericardial effusion showed no evidence of tamponade on echocardiography. She underwent left heart catheterization and it was felt to have a chronic thrombotic occlusion and no coronary intervention was undertaken. Pulmonary consultation is requested to further investigate her bilateral pleural effusions. She is a lifetime nonsmoker. 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 She lives independently, drives her own car and does all of her own house work, cleaning and meal preparation without limiting dyspnea. Just within the last several weeks she has noted some slight dyspnea. She denies norman PND but does have two pillow orthopnea. She also has noted increasing lower extremity edema, particularly over the week preceding her hospitalization. For the last six months she has had significant swelling and tenderness of the right knee. She denies skin rash, adenopathy, fever, chills, sweats, chest pain, pleuritic or otherwise or any ocular pain, conjunctivitis or photophobia. She does complain of dry mouth. She denies any close contact with anyone with tuberculosis. She grew up in the [facility] and lived 20 years in [facility]. She has no history of significant lower respiratory tract infection. She is not aware of any exposure, either first or second hand to asbestos. PAST MEDICAL HISTORY: 1. Two vessel coronary artery disease based on left heart catheterization this hospitalization. 2. Atrial fibrillation. 3. Hypertension. 4. Osteoarthritis. 5. History of "colitis", not further characterized. 6. Peripheral arterial disease status post angioplasty. 7. Seasonal rhinitis. PRIOR SURGICAL HISTORY: 1. Breast biopsy for benign disease. 2. Appendectomy. 3. Angioplasty. OUTPATIENT MEDICATIONS: Aspirin, fluticasone, lisinopril and statin. DRUG ALLERGIES: None known. SOCIAL HISTORY: Recently . Does not smoke or drink and she is a vegetarian and has been for the last 30 years. FAMILY HISTORY: Noncontributory. REVIEW OF SYSTEMS: As above. She has insomnia, lower extremity swelling, recent dyspnea. PHYSICAL EXAM: This is a well-developed, well-nourished woman who appears substantially younger than her stated age and speaks in full sentences. She is alert, pleasant and cooperative. Her blood pressure is 165/70, heart rate is 65 and regular, respirations are 18 and O2 saturation at rest on room air is 98%. HEENT exam: Conjunctivae not injected. Gaze conjugate. Sclerae anicteric. Oropharynx shows dry mucosa with some fissuring but no exudate or ulcerations. There no telangiectasia. Trachea is midline. Neck veins are flat. There is no cervical or supraclavicular lymph nodes. Chest is normal to inspection. On auscultation, she has good air movement in all peres with minimal crackles at the left posterior base. No wheezing is heard. Cardiac exam shows a regular rhythm without murmur, gallop or rub. Abdomen is soft and nontender. Bowel tones are present. There is no organomegaly, mass, tenderness or bruits. Extremities show changes of osteoarthritis in the hands, but no active synovitis is seen. Nails are normal in appearance. The lower extremities show 2+ edema to the mid calf. The right knee as boggy induration throughout the joint with a ballotable effusion. The left knee is normal. DATABASE: Per the electronic medical record. Chest CT scan summarized above shows diffuse enhancement with IV contrast of both basal pleural and pericardium with small bilateral pleural effusions, left greater than right and a small circumferential pericardial effusion. Her CBC shows a hemoglobin of 12, hematocrit 37.9, WBC 6.5 and 219,000 platelets. She had a monocytosis of 12% and 70% neutrophils with 15% lymphocytes. IMPRESSION: Pleuro-Pericarditis. She has evidence for a pleural and pericardial inflammation based on her imaging with diffuse contrast enhancement of all serosal surfaces and pleural fluid which clotted promptly after a diagnostic thoracentesis. While her pleural fluid laboratories are all pending as of this dictation, it is clear that this is an exudative process based on the gross appearance and rapid clotting. She is afebrile and has a normal white count. She is completely nontoxic appearing and it is very unlikely that she has an acute diffuse infectious process to explain her pleuropericardial syndrome. Instead, I am more concerned about a collagen vascular autoimmune process. Adult Still's disease, rheumatoid arthritis, mixed connective tissue disease or even lupus are all considerations at this time. 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 Although her studies are pending, I am comfortable in treating her empirically with prednisone for now. Hopefully her effusions will resolve and steroids can be tapered promptly. If she requires greater than two weeks of systemic corticosteroids, I would consider steroid sparing regimen with nonsteroidal anti-inflammatories or colchicine. Her hospitalist has graciously agreed to follow up with the patient regarding the results of her laboratories over the weekend and next week. I will be contacting community pulmonary critical care physicians to ask their assistance in her outpatient follow up and management. RECOMMENDATIONS: 1. Prednisone 40 mg p.o. daily x3 days and 20 mg p.o. daily until seen in outpatient follow up. 2. Rheumatoid factor and anti CCP titer. 3. LILLIAN. 4. C. reactive protein. 5. QuantiFERON Gold. 6. Pleural fluid for glucose, LDH, protein, albumin, cell count and culture and sensitivity. I had requested RA titer to be performed on this fluid but the lab is unable to do so. 7. Consider repeat imaging with plain chest film and transthoracic echocardiogram as part of outpatient follow up. Thank for requesting pulmonary critical care consultation. The community pulmonary critical care physicians will be happy to continue to participate in her care as an outpatient. SARITA
--- NOTE | 2016-04-07 17:05 | PCM.DC.MED ---
Discharge Summary Date of Service Apr 04, 2016 Dates of Hospitalization Date of Hospital Admission Apr 02, 2016 at 18:27 Date of Discharge: Apr 04, 2016 Providers: Admitting Physician: Mitra Oliva MD Primary Care Physician: Ameya Smalls MD Attending Physician: Mitra Oliva MD Diagnosis at Time of Discharge Diagnosis at Time of Discharge 1. Atrial fibrillation with rapid response. Resolved 2. CAD with occluded RCA 3. PAD 4. Bilateral pleural effusions, unclear etiology 5. Pericardial effusion Consultations Dr Jorgensen, cardiology Dr. Rosado, pulmonary Procedures XRay, CTs & MRIs Chest CT, bilateral small pleural effusions. No reported pericardial effusion. No pulmonary emboli. Chest x-ray after thoracentesis, negative for pneumothorax Cardiac Echo Impression Interpretation Summary The left ventricle is normal in size. The ejection fraction is estimated to be 65-70%. There is mild prolapse of the posterior mitral valve leaflet. There is mild mitral regurgitation. The right ventricular systolic pressure is estimated at 29 mmHg assuming a right atrial pressure of 3 mm Hg. There are no echocardiographic indications of cardiac tamponade. There is a small right-sided pleural effusion. There is a moderate left-sided pleural effusion. There was a pericardial effusion, small to moderate which was not included in the interpretation above. No tamponade. Invasive Procedures Coronary angiogram: 1. [id number] calcification of the coronary tree is noted on fluoroscopy. 2. Left main moderate 30%-40% angiographic disease. However, there was significant ventricularization and damping of the pressure. This did not respond with intracoronary nitroglycerin. In view of this, an FFR was done. Details about the FFR are reported below. 3. LAD: No significant disease. It is a moderate caliber vessel. 4. Circumflex: In its distal circumflex distally has a tubular 70% stenosis. 5. Right coronary artery is totally occluded. This is probably an ostial occlusion. Faint filling of the very proximal RCA seen by a subselective injection. The rest of the artery is seen to fill via [id number] collaterals. This is technically a bypassable vessel. 6. Left heart catheterization revealed LVEDP of 15. There was no gradient upon pullback. 7. We then did an FFR of the left main. The FFR in the left main with intracoronary Adenosine was 0.87, thereby indicating that it was not physiologically significant. ASSESSMENT AND PLAN: This lady has two-vessel coronary artery disease and a borderline left main lesion. The circumflex is a small vessel barely 2 mm. This can be managed medically. The RCA is a flush occlusion and given her advanced age and limited functional ability, I think this is best managed medically too. Lastly, with regard to her left main, it is not critical at this point. I would recommend close cardiology followup and aggressive risk factor modification. I will be discussing all this with the patient postprocedure. Thoracentesis for diagnostic purposes on the day of discharge per Dr. Rosado at the bedside. Other Diagnostics Bilateral leg ultrasounds were obtained and have been completed but not interpreted at the time of discharge. Her arterial studies. Brief History This patient presented with dyspnea and atrial fibrillation with rapid ventricular response to [facility]. Diltiazem was used and she had transient sinus rhythm. She had an elevated troponin. She was transferred to our hospital for cardiology management. Hospital Course Active issues and reason for admission 80 y f, elevated trop, 1. NSTEMI associated w/ RVR/CHF symptoms --heparin gtt, morphine nitro asa statin prn metoprolol/hydralazine -- We will request formal cardiology consultation as we continue to work on rate control. 2. Atrovent fibrillation with rapid ventricular response. - unclear if afib is new vs chronic -- We will continue heparin drip at this point and rate control. We will add a low-dose beta eileen orally and attempt to wean her off her diltiazem drip. Chronic issues known prior to admission, present on admission Left leg PAD, lower extremity angioplasty s/p plavix x 5 months / HTN / DLP colitis episode OA --resume home medications, hold home lisinopril Diet NPO, until after cardiology consultation. DVT prophylaxis on heparin gtt Code full Disposition inpt Assessment and plan were discussed with patient Hospital course. The patient was transferred under suspicion for an STEMI. She was heparinized with a heparin drip. With aspirin and beta-blockade. She had a diltiazem drip for rate control of atrial fibrillation and was given oral beta blockers and slowly weaned off from her trip. Dr. Anglin evaluated the patient taken to the coronary catheterization lab where he found evidence of a totally occluded right coronary artery and other vessel disease is noted in his report at all amenable to medical management. An echocardiogram was obtained which revealed a small to moderate pericardial effusion without evidence of camp and 9. A CT angiogram was negative for PE but revealed bilateral pleural effusions. Dr. Jorgensen requested pulmonary consultation of [facility] and Dr. Rosado spoke with the patient and decided to do a thoracentesis for evaluation of pleural pericarditis. The patient's studies were all pending the time of discharge. These included serologic testing for rheumatoid arthritis or collagen vascular disease. In addition a QuantiFERON was ordered and pending. At the time of discharge Dr. Ramirez elected to treat the patient with aspirin instead of warfarin for concerns regarding the potential to bleed with her pericardial effusion. Dr. Rosado felt that empiric course of anti- inflammatory steroids would be indicated he recommended 40 mg a day of prednisone for 3 days and then 20 mg a day until follow-up. Exam Vital Signs (Last) Date Time Temp Pulse Resp B/P Pulse Ox O2 Delivery O2 Flow Rate FiO2 04/04/16 21:14 36.6 74 18 174/89 100 Room Air 04/03/16 13:30 3.00 Exam Alert oriented no acute distress. Anicteric sclera Lungs are clear. Heart is irregular without murmur. Abdomen soft Extremities are free edema good pedal pulses Test 04/02/16 22:05 04/02/16 23:51 04/03/16 05:00 04/03/16 18:15 Lipase 12U/L (13-60) Urine Color Straw (YELLOW) Urine Appearance Clear (CLEAR,HAZY) Urine pH 5.5 (5.0-8.0) Urine Specific [place] 1.005 (1.003-1.035) Urine Protein Negativemg/dL (NEG,TRACE) Urine Glucose (UA) Negativemg/dL (NEGATIVE) Urine Ketones 15mg/dL (NEGATIVE) Urine Occult Blood Trace (NEGATIVE) Urine Nitrite Negative (NEGATIVE) Urine Bilirubin Negative (NEGATIVE) Urine Urobilinogen Normalmg/dL (NORMAL) Urine Leukocyte Esterase Negative (NEGATIVE) Urine RBC 0-2/hpf (0-2) Urine WBC 0-5/hpf (0-5) Urine Epithelial Cells Moderate/hpf (NONE-MOD) Urine Crystals None seen (NONE SEEN) Urine Bacteria None/hpf (NONE-FEW) Urine Hyaline Casts None/lpf (NONE) Urine Granular Casts None seen (NONE SEEN) Urine Waxy Casts None seen (NONE SEEN) Urine Red Blood Cell Casts None seen (NONE SEEN) Urine White Blood Cell Casts None seen (NONE SEEN) Urine Mucus None seen (None Seen) Urine Trichomonas None seen (NONE SEEN) Urine Yeast None (NONE SEEN) Urine Culture Reflexed Not indicated Magnesium Level 1.9mg/dL (1.6-2.6) Troponin T 0.323ug/L (0.0-0.011) Free Thyroxine 1.32ng/dL (0.82-1.77) Activated Partial Thromboplast Time 29.4sec (22.8-33.0) Test 04/04/16 03:45 04/04/16 14:05 04/04/16 16:39 04/04/16 18:00 Prothrombin Time 13.5sec (8.1-12.5) Prothromb Time International Ratio 1.26ratio Thyroid Stimulating Hormone (TSH) 3.070uIU/mL (0.450-4.500) White Blood Count 6.5th/mm3 (3.8-10.1) Red Blood Count 4.29mil/mm3 (3.90-5.20) Hemoglobin 12.1g/dL (12.0-15.6) Hematocrit 37.9% (35.0-46.0) Mean Corpuscular Volume 88.3fL (81-100) Mean Corpuscular Hemoglobin 28.2pg (27.0-35.0) Mean Corpuscular Hemoglobin Concent 31.9% (32.0-37.0) Red Cell Distribution Width 13.8% (12.3-15.4) Platelet Count 319bil/L (150-400) Neutrophils (%) (Auto) 69.8% (40-74) Lymphocytes (%) (Auto) 15.4% (14-46) Monocytes (%) (Auto) 12.1% (4-12) Eosinophils (%) (Auto) 2.0% (0-5) Basophils (%) (Auto) 0.2% (0-3) Sodium Level 141mEq/L (134-144) Potassium Level 4.2mEq/L (3.5-5.2) Chloride Level 105mEq/L (97-108) Carbon Dioxide Level 18mmol/L (18-29) Blood Urea Nitrogen 12mg/dL (8-27) Creatinine 0.66mg/dL (0.57-1.00) Estimat Glomerular Filtration Rate 123mL/min (>59) Glucose Level 104mg/dL (60-99) Calcium Level 8.8mg/dL (8.5-10.1) Phosphorus Level 3.0mg/dL (2.5-4.9) Total Bilirubin 0.3mg/dL (0.0-1.2) Direct Bilirubin < 0.2mg/dL (0.0-0.3) Aspartate Amino Transf (AST/SGOT) 18U/L (0-50) Alanine Aminotransferase (ALT/SGPT) 9U/L (0-32) Alkaline Phosphatase 93U/L (25-165) Pro-B-Type Natriuretic Peptide 4753pg/mL (0-738) Total Protein 5.9g/dL (6.4-8.4) Albumin 3.4g/dL (3.4-5.0) Anti-Nuclear Antibody Screen Negative (Negative) Body Fluid Source Pleural fluid Body Fluid Color Red (Clear) Body Fluid Appearance Hazy Body Fluid WBC 0/mm3 Body Fluid RBC 09351/mm3 Body Fluid Polynuclear WBCs % Body Fluid Lymphocytes % Body Fluid Monocytes % Body Fluid Eosinophils % Body Fluid Basophils % Body Fluid Albumin 1.2g/dL (.) Body Fluid Lactate Dehydrogenase 199U/L Pleural Fluid Total Protein 1.9g/dL Pleural Fluid Glucose 109mg/dL C-Reactive Protein 4.2mg/dL (0.0-0.5) Rheumatoid Factor 8.5IU/mL (0.0-13.9) Anti-Cyclic Citrullinated Peptide 51units (0-19) Microbiology Results Pericardial effusions had negative Gram stain and cultures Discharge Medications Discharge Medications Aspirin (Aspirin) 325 Mg Tablet 325 MG PO DAILY Prescribed by: RAMAKRISHNA MCNEILL MD Atorvastatin (Lipitor) 10 Mg Tab 10 MG PO DAILY (Reported) Cholecalciferol (Vitamin D3) (Vitamin D3) 2,000 Unit Capsule 2,000 UNIT PO DAILY (Reported) Lisinopril (Lisinopril) 20 Mg Tablet 20 MG PO DAILY (Reported) Metoprolol Tartrate (Metoprolol Tartrate) 50 Mg Tablet 50 MG PO BID Prescribed by: RAMAKRISHNA MCNEILL MD Prednisone (PredniSONE) 20 Mg Tablet 40 MG PO DAILYWM 2 Tablets by mouth daily for 3 days, then one tablet by mouth daily until seen in followup Prescribed by: Jeb JOHNSTON Followup Plan Disposition: Home Discharge Diet: Heart Healthy Discharge Activity: Limited until seen by PCP Patient Instructions Dr Tamayo early next week with protime (for coumadin) Dr Mcneill will call over weekend with fluid test results. Time spent 50 minutes Ramakrishna Mcneill MD Apr 07, 2016 17:05
--- NOTE | 2016-04-11 10:40 | DRSVH ---
PROCEDURE: US DUPLEX DOPPLER BILATERAL LEG ARTERIES ([id number]) INDICATIONS: CLAUDICATION TECHNIQUE: Color and pulse Doppler interrogation was performed of both lower extremity arterial systems, with im age documentation. COMPARISON: None. FINDINGS: Right lower extremity: Vascular Ultrasound Procedure Report Findings(Artery of Lower Extremity)(Right) Common Femoral Artery(Distal) Velocity: 224.90 cm/s Profunda Femoris Artery(Proximal) Velocity: 249.50 cm/s Superficial Femoral Artery(Proximal) Velocity: 256 cm/s Superficial Femoral Artery(Mid-longitudinal) Velocity: 118.60 cm/s Superficial Femoral Artery(Distal) Velocity: 363.60 cm/s Popliteal Artery(Mid-longitudinal) Velocity: Occluded. Posterior Tibial Artery(Distal) Velocity: 24.60 cm/s Dorsalis Pedis Artery(Distal) Velocity: 19.40 cm/s Greyscale findings: Severe scattered plaque. Left lower extremity: Vascular Ultrasound Procedure Report Findings(Artery of Lower Extremity)(Left) Common Femoral Artery(Distal) Velocity: 168.30 cm/s Profunda Femoris Artery(Proximal) Velocity: 521.90 cm/s Superficial Femoral Artery(Proximal) Velocity: 157.70 cm/s Superficial Femoral Artery(Mid-longitudinal) Velocity: 144 cm/s Superficial Femoral Artery(Distal) Velocity: Occluded. Popliteal Artery(Mid-longitudinal) Velocity: Occluded. Posterior Tibial Artery(Distal) Velocity: Occluded. Dorsalis Pedis Artery(Distal) Velocity: 25.80 cm/s Greyscale findings: Severe scattered plaque. IMPRESSION: Occlusion of the right popliteal artery and the left distal superficial femoral and popli teal arteries. * Dictated by: Erich Dela Cruz [facility] Interpreted: Funmilayo Rodriguez MD on 04/11/2016 at 10:37 Transcribed by: SALO on 04/11/2016 at 10:39 Approved by: Funmilayo Rodriguez MD, PhD on 04/11/2016 at 16:47
== END 2016-04-04 21:50 | disposition home or self-care (01) | DRG 281 ==
LOC: PCC 18:27
PROVIDERS: ADMIT Urology; ATTEND Urology
PROC: 4A023N7 Measurement of Cardiac Sampling and Pressure, Left Heart, Percutaneous Approach (ICD-10-PCS; principal; 2016-04-03)
PROC: 4A033BC Measurement of Arterial Pressure, Coronary, Percutaneous Approach (ICD-10-PCS; 2016-04-03)
PROC: B2111ZZ Fluoroscopy of Multiple Coronary Arteries using Low Osmolar Contrast (ICD-10-PCS; 2016-04-03)
PROC: 0W9B3ZX Drainage of Left Pleural Cavity, Percutaneous Approach, Diagnostic (ICD-10-PCS; 2016-04-04)
DX: I21.3 ST elevation (STEMI) myocardial infarction of unspecified site (principal); I31.3 Pericardial effusion (noninflammatory); J90 Pleural effusion, not elsewhere classified; I25.82 Chronic total occlusion of coronary artery; I10 Essential (primary) hypertension; E78.5 Hyperlipidemia, unspecified; I73.9 Peripheral vascular disease, unspecified; M19.90 Unspecified osteoarthritis, unspecified site; I25.10 Atherosclerotic heart disease of native coronary artery without angina pectoris; I25.2 Old myocardial infarction; Z95.820 Peripheral vascular angioplasty status with implants and grafts